=== PATIENT | female | born 1985 | race Caucasian/White ===

== ENCOUNTER 2017-10-17 10:21 | Emergency (ER) | payer SELFPAY ==
[~2017-10-17 10:21] MED LIST: ZIPR1CAP27 PO
[2017-10-17 10:22] VITALS: BP 169/99; PULSE 101; RESP 16; TEMP 99.4; O2SAT 99
[2017-10-17 11:39] LABS: AUTOMATED NEUTROPHIL # 3.9 TH/MM3 (1.8-7.7); BASOPHIL % 0.8 % (0.0-2.0); EOSINOPHIL % 0.8 % (0.0-4.0); HEMATOCRIT 40.8 % (35.0-46.0); HEMO FLAGS DIFF FINAL; LYMPHOCYTE # 1.3 TH/MM3 (1.0-4.8); MEAN CELL VOLUME 98.7 FL (80.0-100.0); MEAN CORPUSCULAR HEMOGLOBIN 33.2 PG (27.0-34.0); MEAN CORPUSCULAR HGB CONC 33.7 % (32.0-36.0); NEUT % 69.4 % (16.0-70.0); PLATELET COUNT 252 TH/MM3 (150-450); RED BLOOD COUNT 4.14 MIL/MM3 (4.00-5.30); RED CELL DISTRIBUTION WIDTH 15.2 % (11.6-17.2); WHITE BLOOD COUNT 5.6 TH/MM3 (4.0-11.0)
[2017-10-17 11:56] LABS: ANION GAP 8 MEQ/L (5-15); AST (GOT) 36 U/L (15-37); BICARBONATE 27.3 MEQ/L (21.0-32.0); BLOOD UREA NITROGEN 5 MG/DL (7-18); CHLORIDE 105 MEQ/L (98-107); GLOMERULAR FILTRATION RATE 98 ML/MIN (>89); POTASSIUM 3.9 MEQ/L (3.5-5.1); SODIUM (NA) 140 MEQ/L (136-145)
[2017-10-17 11:59] LABS: ALKALINE PHOSPHATASE 50 U/L (45-117); ALT (GPT) 60 U/L (10-53); TOTAL BILIRUBIN ADULT 0.3 MG/DL (0.2-1.0)
[2017-10-17 13:26] VITALS: BP 144/90; PULSE 100; RESP 18; TEMP 98; TEMP 99.4; O2SAT 98
--- NOTE | 2017-10-17 13:57 | PD ---
HPI Chief Complaint: Psychiatric Symptoms Time Seen by Provider: 11:09 Travel History International Travel<30 days: No Contact w/Intl Traveler<30days: No Traveled to known affect area: No History of Present Illness HPI This is a 32-year-old female who presents to the emergency department with increasing distance, tearfulness, not wanting to talk to her family members and being very isolated. She has a history of bipolar disorder and this is similar to when she's had manic episodes in the past. Her family does acknowledge that she uses alcohol intermittently. Patient has been hospitalized in the past in the setting of her bipolar disorder. She went to her outpatient psychiatrist office today who referred her here for evaluation. Patient doesn't provide any history. History was obtained from her uncle. PFSH Past Medical History Bipolar Disorder: Yes Depression: Yes (PER AUNT) Cardiovascular Problems: No Endocrine: No Neurologic: No ([place]-) Psychiatric: No Respiratory: No ?: Unknown Social History Alcohol Use: Yes (HEAVY) Tobacco Use: Yes (1 PPD) Substance Use: No (DENIES) Allergies-Medications (Allergen,Severity, Reaction): Coded Allergies: Penicillins (Verified Allergy, Unknown, 10/17/17) Reported Meds & Prescriptions Reported Meds & Active Scripts Active Geodon (Ziprasidone) 60 Mg Cap 60 Mg PO BIDPC Review of Systems Except as stated in HPI: all other systems reviewed are Neg Physical Exam Narrative GENERAL:Well appearing, no acute distress SKIN: Focused skin assessment warm and dry. HEAD: Atraumatic. Normocephalic. EYES: Pupils equal and round. No injection or drainage. ENT: Moist mucous membranes NECK: Trachea midline. CARDIOVASCULAR: Regular rate and rhythm. No murmur appreciated. RESPIRATORY: Clear to auscultation. Breath sounds equal bilaterally. GASTROINTESTINAL: Abdomen soft, non-tender, nondistended. MUSCULOSKELETAL: No obvious deformities. NEUROLOGICAL: Awake and alert. No obvious cranial nerve deficits. Moving all extremities PSYCHIATRIC: intermittent inappropriate smiling and laughter, not answering questions Data Data Last Documented VS Vital Signs Date Time Temp Pulse Resp B/P (MAP) Pulse Ox O2 Delivery O2 Flow Rate FiO2 10/17/17 13:26 99.4 100 18 144/90 (108) 98 Room Air Orders Orders Complete Blood Count With Diff (10/17/17 10:37) Comprehensive Metabolic Panel (10/17/17 10:37) Urinalysis - C+S If Indicated (10/17/17 10:37) Psych Screen (10/17/17 10:37) Alcohol (Ethanol) (10/17/17 11:16) Drug Screen, Random Urine (10/17/17 11:16) Labs Laboratory Tests Test 10/17/17 11:20 White Blood Count 5.6 TH/MM3 Red Blood Count 4.14 MIL/MM3 Hemoglobin 13.8 GM/DL Hematocrit 40.8 % Mean Corpuscular Volume 98.7 FL Mean Corpuscular Hemoglobin 33.2 PG Mean Corpuscular Hemoglobin Concent 33.7 % Red Cell Distribution Width 15.2 % Platelet Count 252 TH/MM3 Mean Platelet Volume 6.9 FL Neutrophils (%) (Auto) 69.4 % Lymphocytes (%) (Auto) 23.0 % Monocytes (%) (Auto) 6.0 % Eosinophils (%) (Auto) 0.8 % Basophils (%) (Auto) 0.8 % Neutrophils # (Auto) 3.9 TH/MM3 Lymphocytes # (Auto) 1.3 TH/MM3 Monocytes # (Auto) 0.3 TH/MM3 Eosinophils # (Auto) 0.0 TH/MM3 Basophils # (Auto) 0.0 TH/MM3 CBC Comment DIFF FINAL Differential Comment Blood Urea Nitrogen 5 MG/DL Creatinine 0.70 MG/DL Random Glucose 83 MG/DL Total Protein 7.6 GM/DL Albumin 3.9 GM/DL Calcium Level 8.7 MG/DL Alkaline Phosphatase 50 U/L Aspartate Amino Transf (AST/SGOT) 36 U/L Alanine Aminotransferase (ALT/SGPT) 60 U/L Total Bilirubin 0.3 MG/DL Sodium Level 140 MEQ/L Potassium Level 3.9 MEQ/L Chloride Level 105 MEQ/L Carbon Dioxide Level 27.3 MEQ/L Anion Gap 8 MEQ/L Estimat Glomerular Filtration Rate 98 ML/MIN Ethyl Alcohol Level 151 MG/DL MDM Medical Decision Making Medical Screen Exam Complete: Yes Emergency Medical Condition: Yes Interpretation(s) Afebrile, mild tachycardia, hypertensive No leukocytosis Electrolytes are reassuring Alcohol 151 Differential Diagnosis Bipolar disorder, paula, psychosis, alcohol intoxication, drug intoxication Narrative Course This is a 32-year-old female who presents to the emergency department for psychiatric evaluation. Patient was admitted in 2014 setting of psychosis. Her family notes that this is a similar episode. Patient also has been abusing alcohol. She is bizarre on exam and doesn't answer questions. Labs are obtained which were reassuring. Alcohol level was elevated. Patient will be observed. She is amenable to being evaluated by psychiatry and she meets Atkinson act criteria at this time and she can be evaluated voluntarily. Rama Mi MD Oct 17, 2017 13:57
[2017-10-17 16:33] LABS: BLOOD, URINE NEG (NEG); COMMENT (UR) CULT NOT INDICATED; CULTURE IF INDICATED CULT NOT INDICATED; GLUCOSE,URINE NEG (NEG); KETONE, URINE NEG (NEG); NITRITE,URINE NEG (NEG); PH, URINE 7.5 (5.0-8.5); SQUAMOUS EPITHELIAL CELL URINE 2 /hpf (0-5); URINE COLOR LIGHT-YELLOW (YELLW/STRAW)
[2017-10-17 18:37] VITALS: BP 150/88; PULSE 91; RESP 18; O2SAT 100
--- NOTE | 2017-10-17 22:12 | PD ---
Physical Exam Date Seen by Provider: Oct 17, 2017 Time Seen by Provider: 22:11 Narrative For full history and physical examination please see previous provider's note. Data Data Last Documented VS Vital Signs Date Time Temp Pulse Resp B/P (MAP) Pulse Ox O2 Delivery O2 Flow Rate FiO2 10/17/17 21:58 10/17/17 18:37 91 18 100 Room Air 10/17/17 13:26 99.4 Orders Orders Complete Blood Count With Diff (10/17/17 10:37) Comprehensive Metabolic Panel (10/17/17 10:37) Urinalysis - C+S If Indicated (10/17/17 10:37) Psych Screen (10/17/17 10:37) Alcohol (Ethanol) (10/17/17 11:16) Drug Screen, Random Urine (10/17/17 11:16) Diet Regular Basic (10/17/17 Dinner) Ed Discharge Order (10/17/17 22:10) Labs Laboratory Tests Test 10/17/17 11:20 10/17/17 15:35 White Blood Count 5.6 TH/MM3 Red Blood Count 4.14 MIL/MM3 Hemoglobin 13.8 GM/DL Hematocrit 40.8 % Mean Corpuscular Volume 98.7 FL Mean Corpuscular Hemoglobin 33.2 PG Mean Corpuscular Hemoglobin Concent 33.7 % Red Cell Distribution Width 15.2 % Platelet Count 252 TH/MM3 Mean Platelet Volume 6.9 FL Neutrophils (%) (Auto) 69.4 % Lymphocytes (%) (Auto) 23.0 % Monocytes (%) (Auto) 6.0 % Eosinophils (%) (Auto) 0.8 % Basophils (%) (Auto) 0.8 % Neutrophils # (Auto) 3.9 TH/MM3 Lymphocytes # (Auto) 1.3 TH/MM3 Monocytes # (Auto) 0.3 TH/MM3 Eosinophils # (Auto) 0.0 TH/MM3 Basophils # (Auto) 0.0 TH/MM3 CBC Comment DIFF FINAL Differential Comment Blood Urea Nitrogen 5 MG/DL Creatinine 0.70 MG/DL Random Glucose 83 MG/DL Total Protein 7.6 GM/DL Albumin 3.9 GM/DL Calcium Level 8.7 MG/DL Alkaline Phosphatase 50 U/L Aspartate Amino Transf (AST/SGOT) 36 U/L Alanine Aminotransferase (ALT/SGPT) 60 U/L Total Bilirubin 0.3 MG/DL Sodium Level 140 MEQ/L Potassium Level 3.9 MEQ/L Chloride Level 105 MEQ/L Carbon Dioxide Level 27.3 MEQ/L Anion Gap 8 MEQ/L Estimat Glomerular Filtration Rate 98 ML/MIN Ethyl Alcohol Level 151 MG/DL Urine Color LIGHT-YELLOW Urine Turbidity CLEAR Urine pH 7.5 Urine Specific [place] 1.007 Urine Protein NEG mg/dL Urine Glucose (UA) NEG mg/dL Urine Ketones NEG mg/dL Urine Occult Blood NEG Urine Nitrite NEG Urine Bilirubin NEG Urine Urobilinogen LESS THAN 2.0 MG/DL Urine Leukocyte Esterase NEG Urine RBC LESS THAN 1 /hpf Urine WBC LESS THAN 1 /hpf Urine Squamous Epithelial Cells 2 /hpf Microscopic Urinalysis Comment CULT NOT INDICATED Urine Opiates Screen NEG Urine Barbiturates Screen NEG Urine Amphetamines Screen NEG Urine Benzodiazepines Screen NEG Urine Cocaine Screen NEG Urine Cannabinoids Screen NEG MDM Medical Record Reviewed: Yes Supervised Visit with CLAUDIA: No Narrative Course Patient is a 32-year-old female presenting to the emergency department for psychiatric evaluation. She was seen and evaluated by the emergency department physician, medically cleared. She was then seen and evaluated the psychiatric screener. Patient will be discharged to the [facility] at this time. Diagnosis Primary Impression: Psychosis Qualified Codes: F29 - Unspecified psychosis not due to a substance or known physiological condition [facility] Patient Instructions: General Instructions Departure Forms: Tests/Procedures Additional Instruction: GO TO [facility] FOR FURTHER EVALUATION AND TREATMENT Scripts No Active Prescriptions or Reported Meds Disposition: 65 DISC TO PSYCH CARE FACILITY Condition: Stable Es Ta Oct 17, 2017 22:12
== END 2017-10-17 22:35 ==
LOC: NEPD 10:21 → NEPJ 22:35
DX: F29 Unspecified psychosis not due to a substance or known physiological condition (principal); R00.0 Tachycardia, unspecified; I10 Essential (primary) hypertension; F31.9 Bipolar disorder, unspecified; F17.200 Nicotine dependence, unspecified, uncomplicated; Z88.0 Allergy status to penicillin; Z79.899 Other long term (current) drug therapy
CPT/HCPCS: 80053; 80307; 81001; 85025; 99285